=== PATIENT | male | born 1995 | race Caucasian/White ===

== ENCOUNTER 2017-06-11 03:09 | Emergency (ER) | payer OTHER ==
[~2017-06-11] VITALS: Ht 180.3 cm; Wt 111.1 kg
[2017-06-11 03:55] VITALS: BP 127/53
[2017-06-11 10:02] LABS: Hepatitis B Surface Antibody Positive
[2017-06-11 10:12] LABS: Hepatitis B Surface Antigen Negative (Negative)
== END 2017-06-11 04:57 | disposition home or self-care (01) ==
LOC: ER 03:09
DX: Z77.21 Contact with and (suspected) exposure to potentially hazardous body fluids (principal); Z88.6 Allergy status to analgesic agent
CPT/HCPCS: 36415; 86703; 86706; 86803; 87340